=== PATIENT | male | born 1950 | race Caucasian/White ===

== ENCOUNTER 2021-12-04 05:24 | Observation (INO) | payer MEDICARE, OTHER ==
[2021-12-03 09:48] LABS: BASOPHILS # (AUTO) 0.1 (0.0-0.1); BASOPHILS % 0.7 % (0.0-1.0); EOSINOPHILS # (AUTO) 0.2 (0.0-0.4); EOSINOPHILS % 2.8 % (0.0-6.0); HEMATOCRIT 41.3 % (38.2-49.6); HEMOGLOBIN 12.6 g/dL (14.0-18.0); LYMPHOCYTES # (AUTO) 1.6 (1.0-3.2); LYMPHOCYTES % 19.3 % (18.0-39.1); MEAN CORPUSCULAR HEMOGLOBIN 30.5 pg (28-32); MEAN CORPUSCULAR HGB CONC 30.5 g/dL (31-35); MONOCYTES # (AUTO) 0.8 (0.2-0.8); NEUTROPHILS # (AUTO) 5.7 (2.1-6.9); NEUTROPHILS % 67.6 % (38.7-80.0); PLATELET COUNT 226 x10e3/uL (140-360); RED BLOOD COUNT 4.13 x10e6/uL (4.3-5.7); RED CELL DISTRIBUTION WIDTH 14.8 % (11.7-14.4)
[2021-12-03 10:03] LABS: ANION GAP 15.1 mmol/L (8-16); CALCIUM 9.4 mg/dL (8.4-10.2); CREATININE, SERUM 3.39 mg/dL (0.72-1.25); POTASSIUM 4.1 mmol/L (3.5-5.1)
[2021-12-03 10:04] LABS: INR 0.94; PROTHROMBIN TIME 13.4 seconds (11.9-14.5)
[2021-12-03 10:05] LABS: PARTIAL THROMBOPLASTIN TIME 26.9 seconds (23.8-35.5)
[~2021-12-04] VITALS: Ht 182.9 cm; Wt 123.4 kg
[~2021-12-04 05:24] MED LIST: ACTOS15 MG PO; ALLOPURINOL300 MG PO; ASPIRIN81 MG PO; DOXAZOSIN MESYLA2 MG PO; FENOFIBRATE145 MG PO; LOSARTAN POTAS100 MG PO; MELOXICAM7.5 MG PO
[2021-12-04] MEDS ORDERED: HUMULIN 70100 UNIT/1 SC (06:42)
[2021-12-04] MEDS ORDERED: LIDOCAINE 1% W/EPINEPHRINE 20 ML VIAL ONE (06:49)
[2021-12-04] MEDS ORDERED: THROMBIN FOR SOLN 5,000 UNIT VIAL ONE (06:49)
[2021-12-04] MEDS ORDERED: Vancomycin IV 1 GM VIAL ONE (06:49)
[2021-12-04] MEDS ORDERED: ONDANSETRON HCL INJ 2MG/ML 2ML 2 MG/ML VIAL IV PRN (09:00)
[2021-12-04] MEDS ORDERED: MORPHINE SULFATE 5 MG/ML VIAL IM PRN (09:00)
[2021-12-04] MEDS ORDERED: ZOLPIDEM TARTRATE 5 MG TAB PO PRN (09:00)
[2021-12-04] MEDS ORDERED: PIOGLITAZONE HCL 15 MG TAB PO SCH (09:00)
[2021-12-04] MEDS ORDERED: ACETAMINOPHEN 325 MG TAB PO PRN (09:00)
[2021-12-04] MEDS ORDERED: OXYCODONE/ACETAMINOPHEN 5-325 1 EACH TABLET PO PRN (09:00)
[2021-12-04] MEDS ORDERED: MELOXICAM 7.5 MG TAB PO SCH (09:00)
[2021-12-04] MEDS ORDERED: CARISOPRODOL 350 MG TAB PO PRN (09:00)
[2021-12-04] MEDS ORDERED: DOXAZOSIN MESYLATE 2 MG TAB PO SCH (09:00)
[2021-12-04] MEDS ORDERED: DEXTROSE 50% SYRINGE 50 ML IV PRN (09:00)
[2021-12-04] MEDS ORDERED: LOSARTAN POTASSIUM 100 MG TAB PO SCH (09:00)
[2021-12-04] MEDS ORDERED: MAGNESIUM/ALUMINUM/SIMETHICONE 30 ML UDC PO PRN (09:00)
[2021-12-04] MEDS ORDERED: ALLOPURINOL 300 MG TAB PO SCH (09:00)
[2021-12-04] MEDS ORDERED: CEPACOL SORE THROAT LOZENGES PO PRN (09:00)
[2021-12-04] MEDS ORDERED: FENOFIBRATE 145 MG TAB PO SCH (09:00)
[2021-12-04] MEDS ORDERED: HYDROMORPHONE 2MG/ML 2 MG/ML ML IV PRN (09:00)
[2021-12-04] MEDS ORDERED: PROMETHAZINE HCL (IM) 25 MG/ML VIAL IM PRN (09:00)
[2021-12-04] MEDS ORDERED: HYDROCODON-ACE1 EA12 PO (09:02)
[2021-12-04 10:15] VITALS: BP 137/61
[2021-12-04 10:25] VITALS: BP 137/61
[2021-12-04] MEDS: LACTATED RINGER'S 1,000 ML IV SCH ×2 (11:15→17:20)
[2021-12-04 12:03] VITALS: BP 149/68
[2021-12-04] MEDS ORDERED: ROCURONIUM BROMIDE 10 MG/ML 5ML VIAL IV ONE (12:21)
[2021-12-04] MEDS ORDERED: POVIDONE IODINE 0.05% 0.05 % ML PO ONE (12:21)
[2021-12-04] MEDS ORDERED: PROPOFOL IV EMULSION 10 MG/ML 20 ML VIAL ONE (12:21)
[2021-12-04] MEDS ORDERED: SEVOFLURANE INHAL SOLN 250 ML PEN BTL ONE (12:21)
[2021-12-04] MEDS ORDERED: SUCCINYLCHOLINE CHLORIDE 20 MG/ML 10ML VIAL ONE (12:21)
[2021-12-04] MEDS ORDERED: KETOROLAC TROMETHAMINE 30 MG/ML VIAL ONE (12:21)
[2021-12-04] MEDS ORDERED: DEXAMETHASONE SOD PHOS INJ 4 MG/ML SDV ONE (12:21)
[2021-12-04] MEDS ORDERED: ONDANSETRON HCL INJ 2MG/ML 2ML 2 MG/ML VIAL ONE (12:21)
[2021-12-04] MEDS ORDERED: LIDOCAINE HCL 2% LOCAL INJ 5 ML SDV VIAL INJ ONE (12:21)
[2021-12-04 17:34] VITALS: BP 150/67
[2021-12-04 20:00] VITALS: BP 150/67
[2021-12-04 21:01] VITALS: BP 141/66
[2021-12-05] VITALS: BP 134/57
[2021-12-05] MEDS: LACTATED RINGER'S 1,000 ML IV SCH (01:40)
[2021-12-05 04:00] VITALS: BP 151/64
[2021-12-05 07:48] VITALS: BP 150/60
[2021-12-05 08:32] VITALS: BP 150/60
== END 2021-12-05 08:57 | disposition home or self-care (01) ==
LOC: OR 05:24 → PACU V 09:21 → MED/SURG 10:06
PROVIDERS: ADMIT Neurological Surgery; ATTEND Neurological Surgery
DX: M48.062 Spinal stenosis, lumbar region with neurogenic claudication (principal); E11.9 Type 2 diabetes mellitus without complications; E78.5 Hyperlipidemia, unspecified; I10 Essential (primary) hypertension; Z01.818 Encounter for other preprocedural examination; Z20.822 Contact with and (suspected) exposure to COVID-19
CPT/HCPCS: 0223U; 36415 ×3; 63047; 63048; 71046; 72020; 80048; 82948 ×2; 85025; 85610; 85730; 86850; 86900; 88304; 88311; 93005; G0378 ×2; J0690 ×2; J3370; J7121; J0330; J1100; J1885; J2001; J2405

== ENCOUNTER 2021-12-25 14:58 | Outpatient (RCR) | payer OTHER ==
[~2021-12-25 14:58] MED LIST changes: +HUMULIN 70100 UNIT/1 SC; +HYDROCODON-ACE1 EA12 PO
== END 2021-12-28 ==
LOC: PT 14:58
PROVIDERS: ATTEND Neurological Surgery
DX: M48.061 Spinal stenosis, lumbar region without neurogenic claudication (principal)

== ENCOUNTER 2022-01-13 15:00 | Outpatient (RCR) | payer OTHER | END 2022-01-28 | LOC: PT 15:00 | PROVIDERS: ATTEND Neurological Surgery | DX: M48.062 Spinal stenosis, lumbar region with neurogenic claudication (principal) | CPT/HCPCS: 97110 ×5; G0283 ==

== ENCOUNTER 2022-03-20 19:59 | Emergency (ER) | payer MEDICARE ==
[~2022-03-20] VITALS: Ht 182.9 cm; Wt 123.4 kg
[2022-03-20] MEDS ORDERED: HYDROCODONE/APAP 5MG-325MG TAB PO ONE (20:15)
[2022-03-20] MEDS ORDERED: KETOROLAC TROME10 MG PO (21:59)
== END 2022-03-20 22:23 | disposition home or self-care (01) ==
LOC: ER 20:03
DX: M51.36 Other intervertebral disc degeneration, lumbar region (principal); M62.830 Muscle spasm of back; I10 Essential (primary) hypertension; E11.9 Type 2 diabetes mellitus without complications; E78.5 Hyperlipidemia, unspecified; I25.10 Atherosclerotic heart disease of native coronary artery without angina pectoris; M54.9 Dorsalgia, unspecified; G89.29 Other chronic pain; Z87.442 Personal history of urinary calculi
CPT/HCPCS: 72131; 99283